=== PATIENT | female | born 2000 | race Caucasian/White ===

== ENCOUNTER 2024-12-24 17:56 | Emergency (ER) | payer OTHER ==
[2024-12-24 18:05] VITALS: BP 118/89; PULSE 73; RESP 18; TEMP 98.6; BMI 28.3
[2024-12-24] MEDS ORDERED: ACETAMINOPHEN INJECTION 100 ML ONE (18:57)
[2024-12-24] MEDS: ACETAMINOPHEN 1000 MG/100 ML BAG IVPB ONE (19:02)
[2024-12-24 19:09] LABS: BASO % 0.4 % (0-2.0); EOS % 1.9 % (0-4.5); HEMATOCRIT 43.5 % (32.4-45.2); HEMOGLOBIN 14.6 GM/dL (10.7-15.3); LYMPH % 45.5 % (8-40); MCH 29.1 pg (25.7-33.7); MCHC 33.5 g/dl (32.0-36.0); MEAN CELL VOLUME 86.8 fl (80-96); MEAN PLT VOLUME 8.2 fl (7.5-11.1); MONO % 5.4 % (3.8-10.2); NEUT % 46.8 % (42.8-82.8); PLATELET COUNT 313 10^3/uL (134-434); RBC 5.02 M/mm3 (3.60-5.2); RDW 12.9 % (11.6-15.6); WHITE BLOOD COUNT 12.1 K/mm3 (4.0-10.0)
[2024-12-24 19:12] LABS: URINE APPEARANCE CLEAR; URINE BILIRUBIN NEGATIVE (NEGATIVE); URINE COLOR YELLOW; URINE GLUCOSE (UA) NEGATIVE (NEGATIVE); URINE KETONE NEGATIVE (NEGATIVE); URINE LEUK ESTERASE NEGATIVE (NEGATIVE); URINE NITRITE NEGATIVE (NEGATIVE); URINE PROTEIN NEGATIVE (NEGATIVE); URINE UROBILINOGEN 0.2 mg/dL (0.2-1.0)
[2024-12-24 20:06] LABS: BILIRUBIN,TOTAL 0.3 mg/dL (0.2-1); CALCIUM 9.5 mg/dL (8.5-10.1); CHLORIDE 102 mmol/L (98-107); SGPT/ALT 24 U/L (13-61); SODIUM 134 mmol/L (136-145)
[2024-12-24 20:07] LABS: ALBUMIN 4.1 g/dl (3.4-5.0); ALK PHOS 45 U/L (45-117); CO2 26 mmol/L (21-32); GLUCOSE,RANDOM 87 mg/dL (74-106)
[2024-12-24 20:08] LABS: TOT PROT 8.8 g/dl (6.4-8.2)
[2024-12-24 20:09] LABS: CREATININE 0.8 mg/dL (0.55-1.3)
[2024-12-24 20:13] LABS: SGOT/AST 53 U/L (15-37)
[2024-12-24 20:14] LABS: BLOOD UREA NITROGEN 12.6 mg/dL (7-18)
[2024-12-24 20:18] LABS: ANION GAP 6 mmol/L (4-13); POTASSIUM 6.6 mmol/L (3.5-5.1)
== END 2024-12-24 22:24 | disposition home or self-care (01) ==
LOC: JER 17:56
PROC: 3E033NZ Introduction of Analgesics, Hypnotics, Sedatives into Peripheral Vein, Percutaneous Approach (ICD-10-PCS; principal; 2024-12-24)
DX: R10.31 Right lower quadrant pain (principal)
CPT/HCPCS: 36415; 74177-TC; 76830-TC; 80053; 81003; 83735; 84132; 84703; 85025; 87086; 99285-25; J0131; Q9967